=== PATIENT | female | born 1930 | race Caucasian/White ===

== ENCOUNTER 2019-01-25 11:32 | Inpatient (IN) | payer MEDICARE, OTHER ==
[~2019-01-25] VITALS: Ht 160 cm; Wt 71.9 kg
[~2019-01-25 11:32] MED LIST: ASPI81TA52 PO; ATEN50TA PO; ATOR40TA68 PO; BENHCT2012 PO; CLON-379 PO; ICOS1CAP PO; LOSA1TAB22 PO; MEMA10TA PO; OLME1TAB29 PO; REPA1TAB5 PO; SITA1TAB PO; SULF1TAB31 PO
[2019-01-25 11:37] VITALS: Ht 160 cm; Wt 71.9 kg
--- NOTE | 2019-01-25 12:43 | EN ---
Date/Time of Note Date/Time of Note DATE: 01/25/19 TIME: 12:43 ER Progress Note 88-year-old female with history of hypertension, diabetes, hyperlipidemia presents for chest pain. Medical screening exam initiated and lab/imaging tests ordered. Patient will be seen by another provider. SHAHEEN NIXON DO Jan 25, 2019 12:43
--- NOTE | 2019-01-25 15:47 | ERD ---
ER Documentation Chief Complaint Chief Complaint chest pain, shortness of breath, palpatitation HPI This is an 88-year-old woman referred here by her PMD for admission and inpatient management, patient had left-sided chest pain today beginning at rest and lasting for about 10 to 15 minutes. She also had shortness of breath and her daughter who is at the bedside states her blood sugars have been running very high despite recent new medications. The symptoms began shortly after using her new diabetic medications and her first dose of Bactrim for recently diagnosed urinary tract infection. Her daughter is worried that these new medications caused her symptoms and wants them changed. Patient has had no recent fevers or chills, no cough, no headache or blurry vision, no loss of consciousness. ROS All systems reviewed and are negative except as per history of present illness. Medications Home Meds Reported Medications Aspirin (Low Dose Aspirin) 81 Mg Tablet.dr, 81 MG PO DAILY, #30 TAB 01/25/19 Atorvastatin* (Atorvastatin*) 40 Mg Tablet, 40 MG PO QHS, #30 TAB 01/25/19 Memantine* (Namenda*) 10 Mg Tablet, 10 MG PO BID, #60 TAB 01/25/19 Sbcqhiydno-Ofkuljjuie-MYYR (Tribenzor) 20-5-12.5 Mg Tablet, 1 TAB PO DAILY, TAB 01/25/19 Icosapent Ethyl (VASCEPA) 1 Gm Capsule, 2 GM PO BID, CAP 01/25/19 Atenolol* (Atenolol*) 50 Mg Tablet, 50 MG PO BID, #60 TAB 01/25/19 Sulfamethoxazole/Trimethoprim* (Bactrim Ds* Tablet) 1 Each Tablet, 1 TAB PO BID, TAB STARTED 01-18-19 FOR 7 DAYS 01/25/19 Sitagliptin Phos/Metformin HCl (Janumet 50-500 mg Tablet) 1 Each Tablet, 1 EACH PO BID, TAB 01/25/19 Repaglinide* (Repaglinide*) 1 Mg Tablet, 1 MG PO AC MEALS, TAB 01/25/19 Discontinued Reported Medications Losartan-Hydrochlorothiazide (Losartan-HCTZ) 50-12.5 Mg Tab, 1 TAB PO DAILY, TAB 03/01/16 Clonidine Hcl* (Clonidine Hcl*) 0.1 Mg Tab, 0.1 MG PO Q8, TAB 9/4/16 Olmesartan-Hydrochlorothiazide (Benicar HCT) 20-12.5 Mg Tablet, 1 TAB PO DAILY, #30 TAB 03/01/16 Atorvastatin* (Atorvastatin*) 40 Mg Tablet, 40 MG PO QHS, #30 TAB 03/01/16 Atenolol* (Atenolol*) 50 Mg Tablet, 50 MG PO BID, TAB 06/02/14 Allergies Allergies: Coded Allergies: No Known Allergy (Unverified , 01/25/19) PMhx/Soc Dementia, obesity, hypertension, diabetes mellitus, dyslipidemia History of Surgery: Yes (REMOVAL OF LYPOMA.) Anesthesia Reaction: No Hx Neurological Disorder: No Hx Respiratory Disorders: No Hx Cardiac Disorders: Yes (HTN) Hx Psychiatric Problems: No Hx Miscellaneous Medical Probl: No Hx Alcohol Use: No Hx Substance Use: No Hx Tobacco Use: No Smoking Status: Never smoker FmHx Family History: diabetes Physical Exam Vitals Vital Signs Date Temp Pulse Resp B/P (MAP) Pulse Ox O2 O2 Flow FiO2 Time Delivery Rate 01/25/19 98.1 80 16 133/77 98 Room Air 16:51 (95) 01/25/19 98.1 89 16 147/74 98 Room Air 15:42 (98) 01/25/19 98.1 111 26 173/86 95 11:37 (115) Physical Exam GENERAL: Well-developed, well-nourished, well-hydrated, in no apparent distress, looks nontoxic in appearance CARDIAC: Regular rate and rhythm, no murmurs rubs or gallops LUNGS: Crackles at the bases, no wheezing or stridor ABDOMEN: Soft nontender, no guarding, no rigidity, no rebound, no psoas sign no obturator sign. Normoactive bowel sounds SKIN: Warm and dry to touch, no abrasions, contusions, or hematomas, no lacerations, no ecchymosis, no target lesions, and without ulcers EXTREMITIES: No clubbing cyanosis or edema, calves are bilaterally symmetrical, no Homans sign, no popliteal cord sign. Distal pulses equal and bilateral PSYCH: Normal affect without agitation or irritability Result Diagram: 01/25/19 1307 01/25/19 1307 Results 24 hrs Laboratory Tests Test 01/25/19 13:07 White Blood Count 6.6 10^3/ul Red Blood Count 4.96 10^6/ul Hemoglobin 14.1 g/dl Hematocrit 43.0 % Mean Corpuscular Volume 86.7 fl Mean Corpuscular Hemoglobin 28.4 pg Mean Corpuscular Hemoglobin Concent 32.8 g/dl Red Cell Distribution Width 13.6 % Platelet Count 263 10^3/UL Mean Platelet Volume 9.3 fl Immature Granulocytes % 0.300 % Neutrophils % 64.2 % Lymphocytes % 24.7 % Monocytes % 8.8 % Eosinophils % 1.2 % Basophils % 0.8 % Nucleated Red Blood Cells % 0.0 /100WBC Immature Granulocytes # 0.020 10^3/ul Neutrophils # 4.2 10^3/ul Lymphocytes # 1.6 10^3/ul Monocytes # 0.6 10^3/ul Eosinophils # 0.1 10^3/ul Basophils # 0.1 10^3/ul Nucleated Red Blood Cells # 0.0 10^3/ul Sodium Level 142 mmol/L Potassium Level 4.4 mmol/L Chloride Level 106 mmol/L Carbon Dioxide Level 26 mmol/L Anion Gap 10 Blood Urea Nitrogen 21 mg/dl Creatinine 0.85 mg/dl Est Glomerular Filtrat Rate mL/min mL/min Glucose Level 205 mg/dl Calcium Level 9.8 mg/dl Total Bilirubin 0.5 mg/dl Direct Bilirubin 0.00 mg/dl Indirect Bilirubin 0.5 mg/dl Aspartate Amino Transf (AST/SGOT) 22 IU/L Alanine Aminotransferase (ALT/SGPT) 35 IU/L Alkaline Phosphatase 125 IU/L Troponin I < 0.012 ng/ml B-Type Natriuretic Peptide 1680 PG/ML Total Protein 7.5 g/dl Albumin 4.5 g/dl Globulin 3.00 g/dl Albumin/Globulin Ratio 1.50 Current Medications Medications Dose Sig/Sai Start Time Status Last (Trade) Ordered Route PRN Stop Time Admin Dose Reason Admin Furosemide 20 mg ONCE ONCE 01/25/19 DC 01/25/19 (Lasix) PO 16:30 16:27 01/25/19 16:31 Aspirin 162 mg ONCE ONCE 01/25/19 DC 01/25/19 (Aspirin) PO 16:30 16:27 01/25/19 16:31 Procedures/MDM IV line was established patient was placed on telemetry monitor rhythm strip revealed a narrow complex tachycardia at 110 bpm with upright P and T waves. Patient was afebrile EKG performed, read by me revealed a sinus tachycardia at 110 bpm, normal axis, narrow QRS complex, no concerning ST elevations or depressions noted EKG #2 was performed about 3 hours after the first 1 revealing a normal sinus rhythm 85 bpm, normal axis, narrow QRS complex, no concerning ST elevations or depressions noted. 1 view chest x-ray performed, read by me revealed atelectatic changes bilaterally, no acute infiltrates, no pneumothorax. BNP severely elevated I treated her here with furosemide 20 mg p.o. x1 and aspirin 162 mg p.o. for cardioprotective measures given her recent chest pain. CBC and electrolytes were normal, liver function test normal, troponin negative. I spoke to Dr. [place] who recommended admission for continued medical management and medication optimization. Patient admitted to telemetry. Departure Diagnosis: Primary Impression: Chest pain Chest pain type: unspecified Qualified Codes: R07.9 - Chest pain, unspecified Additional Impressions: CHF (congestive heart failure) Heart failure type: combined systolic and diastolic Heart failure chronicity: acute Qualified Codes: I50.41 - Acute combined systolic (congestive) and diastolic (congestive) heart failure Hyperglycemia Condition: CAM Bloom MD Jan 25, 2019 15:47
[2019-01-25] MEDS ORDERED: ASPIRIN 81 MG TAB PO ONE (16:30)
[2019-01-25] MEDS ORDERED: FUROSEMIDE 20 MG TAB PO ONE (16:30)
[2019-01-25 23:14] VITALS: BP 121/58; PULSE 78; RESP 19
[2019-01-26] VITALS (7 sets, daily range): BP systolic 95–133; BP diastolic 57–72; PULSE 60–86; RESP 18–20
[2019-01-26] MEDS ORDERED: ONDANSETRON 4 MG INJ IV PRN (00:30)
[2019-01-26] MEDS: PANTOPRAZOLE (EC) 40 MG TAB PO SCH (06:00)
[2019-01-26] MEDS: ACCU-CHEK XX SCH ×4 (08:30→21:00)
[2019-01-26] MEDS: metFORMIN 500 MG TAB PO SCH ×2 (08:46→17:22)
[2019-01-26] MEDS: REPAGLINIDE 1 MG TAB PO SCH ×3 (08:46→17:22)
[2019-01-26] MEDS: CIPROFLOXACIN 400MG/D5W 200 ML IVPB SCH ×2 (08:55→17:22)
[2019-01-26] MEDS ORDERED: ENALAPRIL 2.5 MG TAB PO SCH (09:00)
[2019-01-26] MEDS ORDERED: FUROSEMIDE 20 MG TAB PO SCH (09:00)
[2019-01-26] MEDS: INSULIN ASPART [NOVOLOG] 3 ML PEN SC SCH ×4 (09:19→21:00)
--- NOTE | 2019-01-26 09:41 | CONS ---
Assessment/Plan Assessment/Plan Hospital Course (Demo Recall) Chest pain/palpitations/SVT: With tele showing runs of SVT which appear to be atrial tachycardia, this may have been what she felt. EKGs and initial trop (which was 12+ hours after the incident) both normal so unlikely ACS. She is also relatively active and asymptomatic. For now will continue her atenolol, check an echo and check one more trop. If all normal, will defer stress testing unless she had recurrent symptoms HTN DM UTI Mild dementia -one more troponin -check echo -continue atenolol 50mg BID -monitor on tele for recurrence of SVT -ASA, lipitor Consultation Date/Type/Reason Admit Date/Time Jan 25, 2019 at 16:18 Date of Consultation: Jan 26, 2019 Type of Consult Cardiology Reason for Consultation Chest pain Requesting Provider: SHAWNEE CALDERON MD Date/Time of Note DATE: 01/26/19 TIME: 09:30 Hx of Present Illness 88 yo F with a h/o DM, HTN, HL, mild dementia, who presented at the request of Dr. Calderon after complaining of chest pain. The pt's daughter is at bedside (her is my pt as well). The daughter notes that yesterday her mother complained of chest pressure which had occurred the night before. Apparently she was prescribed new DM meds as well as bactrim for a UTI. She had taken all three in the evening. She has poor memory and is not able to describe details but she notes that she felt palpitations and chest pressure for a brief period which then resolved. She does not think it was related to the actual pills getting stuck in her esophagus. No recurrence all day yesterday or today. She denies cardiac history and in general is able to ambulate 2-3 blocks without chest pain or dyspnea. No orthopnea, PND, edema. In the ED she had normal EKGs, one normal troponin and was given PO lasix for elevated BNP. Overnight she had two short runs of SVT, likely atrial tachycardia. She was asleep during the longer one. per hPI Past Medical History per hPI Home Meds Reported Medications Aspirin (Low Dose Aspirin) 81 Mg Tablet., 81 MG PO DAILY, #30 TAB 01/25/19 Atorvastatin* (Atorvastatin*) 40 Mg Tablet, 40 MG PO QHS, #30 TAB 01/25/19 Memantine* (Namenda*) 10 Mg Tablet, 10 MG PO BID, #60 TAB 01/25/19 Wqrcvinybb-Atwchcyxxw-FOBE (Tribenzor) 20-5-12.5 Mg Tablet, 1 TAB PO DAILY, TAB 01/25/19 Icosapent Ethyl (VASCEPA) 1 Gm Capsule, 2 GM PO BID, CAP 01/25/19 Atenolol* (Atenolol*) 50 Mg Tablet, 50 MG PO BID, #60 TAB 01/25/19 Sulfamethoxazole/Trimethoprim* (Bactrim Ds* Tablet) 1 Each Tablet, 1 TAB PO BID, TAB STARTED 01-18-19 FOR 7 DAYS 01/25/19 Sitagliptin Phos/Metformin HCl (Janumet 50-500 mg Tablet) 1 Each Tablet, 1 EACH PO BID, TAB 01/25/19 Repaglinide* (Repaglinide*) 1 Mg Tablet, 1 MG PO AC MEALS, TAB 01/25/19 Discontinued Reported Medications Losartan-Hydrochlorothiazide (Losartan-HCTZ) 50-12.5 Mg Tab, 1 TAB PO DAILY, TAB 03/01/16 Clonidine Hcl* (Clonidine Hcl*) 0.1 Mg Tab, 0.1 MG PO Q8, TAB 03/01/16 Olmesartan-Hydrochlorothiazide (Benicar HCT) 20-12.5 Mg Tablet, 1 TAB PO DAILY, #30 TAB 03/01/16 Atorvastatin* (Atorvastatin*) 40 Mg Tablet, 40 MG PO QHS, #30 TAB 03/01/16 Atenolol* (Atenolol*) 50 Mg Tablet, 50 MG PO BID, TAB 06/02/14 Medications Current Medications Ciprofloxacin/ Dextrose 200 ml @ 200 mls/hr BID WITH MEALS IVPB ; Start 01/26/19 at 08:00 Metformin HCl (Glucophage) 500 mg BID WITH MEALS PO ; Start 01/26/19 at 08:00 Insulin Aspart (Novolog Insulin Pen) NOVOLOG *MODERATE* ALGORITHM WITH MEALS BEDTIME SC ; Start 01/26/19 at 08:00 Pantoprazole (Protonix Tab) 40 mg DAILY@06 PO ; Start 01/26/19 at 06:00 Ondansetron HCl (Zofran Inj) 4 mg Q4H PRN IV NAUSEA AND/OR VOMITING; Start 01/26/19 at 00:30 Furosemide (Lasix) 20 mg Q12 PO ; Start 01/26/19 at 09:00 Aspirin (Aspirin) 81 mg DAILY PO ; Start 01/26/19 at 09:00 Atenolol (Tenormin) 50 mg BID PO ; Start 01/26/19 at 09:00 Atorvastatin Calcium (Lipitor) 40 mg QHS PO ; Start 01/26/19 at 21:00 Repaglinide (Prandin) 1 mg AC MEALS PO ; Start 01/26/19 at 07:00 Diagnostic Test (Pha) (Accu-Chek) 1 ea AC MEALS AND BEDTIME XX Last administered on 01/26/19at 08:30; Admin Dose 1 EA; Start 01/26/19 at 07:00 Enalapril Maleate (Vasotec) 2.5 mg DAILY PO ; Start 01/26/19 at 09:00 Allergies: Coded Allergies: No Known Allergy (Unverified , 01/25/19) Social History Smoking Status: Never smoker Exam/Review of Systems Vital Signs Vitals Vital Signs Date Temp Pulse Resp B/P (MAP) Pulse Ox O2 O2 Flow FiO2 Time Delivery Rate 01/26/19 97.6 86 18 133/70 93 07:23 (91) 01/26/19 Nasal 04:03 Cannula 01/26/19 2.0 00:00 Exam Constitutional: alert, oriented Psych: no complaints, nl mood/affect Head: normocephalic, atraumatic Neck: No jvd Respiratory: clear to auscultation; No crackles/rales Cardiovascular: regular rate and rhythm; No edema Gastrointestinal: soft, non-tender; No distended Neurological: nl mental status, nl speech Labs Result Diagram: 01/25/19 1307 01/25/19 1307 Results 24hrs Laboratory Tests Test 01/25/19 13:02 01/25/19 13:07 01/25/19 18:49 01/25/19 23:34 Magnesium Level 2.1 White Blood Count 6.6 Red Blood Count 4.96 Hemoglobin 14.1 Hematocrit 43.0 Mean Corpuscular 86.7 Volume Mean Corpuscular 28.4 L Hemoglobin Mean Corpuscular 32.8 Hemoglobin Concent Red Cell 13.6 Distribution Width Platelet Count 263 Mean Platelet Volume 9.3 # Immature 0.300 Granulocytes % Neutrophils % 64.2 Lymphocytes % 24.7 Monocytes % 8.8 Eosinophils % 1.2 Basophils % 0.8 Nucleated Red Blood 0.0 Cells % Immature 0.020 Granulocytes # Neutrophils # 4.2 Lymphocytes # 1.6 Monocytes # 0.6 Eosinophils # 0.1 Basophils # 0.1 Nucleated Red Blood 0.0 Cells # Sodium Level 142 Potassium Level 4.4 Chloride Level 106 Carbon Dioxide Level 26 Anion Gap 10 Blood Urea Nitrogen 21 H Creatinine 0.85 Est Glomerular Filtrat Rate mL/min Glucose Level 205 Calcium Level 9.8 Total Bilirubin 0.5 Direct Bilirubin 0.00 Indirect Bilirubin 0.5 Aspartate Amino 22 Transf (AST/SGOT) Alanine 35 Aminotransferase (AL T/SGPT) Alkaline Phosphatase 125 H Troponin I < 0.012 B-Type Natriuretic 1680 H Peptide Total Protein 7.5 Albumin 4.5 Globulin 3.00 Albumin/Globulin 1.50 Ratio Urine Color YELLOW Urine Clarity CLEAR Urine pH 5.0 Urine Specific 1.015 [place] Urine Ketones NEGATIVE Urine Nitrite NEGATIVE Urine Bilirubin NEGATIVE Urine Urobilinogen NEGATIVE Urine Leukocyte 2+ H Esterase Urine Microscopic 1 RBC Urine Microscopic 5 WBC Urine Bacteria FEW A Urine Hemoglobin NEGATIVE Urine Glucose NEGATIVE Urine Total Protein NEGATIVE Bedside Glucose 136 Test 01/26/19 08:31 Bedside Glucose 176 Medications Medications Current Medications Ciprofloxacin/ Dextrose 200 ml @ 200 mls/hr BID WITH MEALS IVPB ; Start 01/26/19 at 08:00 Metformin HCl (Glucophage) 500 mg BID WITH MEALS PO ; Start 01/26/19 at 08:00 Insulin Aspart (Novolog Insulin Pen) NOVOLOG *MODERATE* ALGORITHM WITH MEALS BEDTIME SC ; Start 01/26/19 at 08:00 Pantoprazole (Protonix Tab) 40 mg DAILY@06 PO ; Start 01/26/19 at 06:00 Ondansetron HCl (Zofran Inj) 4 mg Q4H PRN IV NAUSEA AND/OR VOMITING; Start 01/26/19 at 00:30 Furosemide (Lasix) 20 mg Q12 PO ; Start 01/26/19 at 09:00 Aspirin (Aspirin) 81 mg DAILY PO ; Start 01/26/19 at 09:00 Atenolol (Tenormin) 50 mg BID PO ; Start 01/26/19 at 09:00 Atorvastatin Calcium (Lipitor) 40 mg QHS PO ; Start 01/26/19 at 21:00 Repaglinide (Prandin) 1 mg AC MEALS PO ; Start 01/26/19 at 07:00 Diagnostic Test (Pha) (Accu-Chek) 1 ea AC MEALS AND BEDTIME XX Last administered on 01/26/19at 08:30; Admin Dose 1 EA; Start 01/26/19 at 07:00 Enalapril Maleate (Vasotec) 2.5 mg DAILY PO ; Start 01/26/19 at 09:00 JAME DURON Jan 26, 2019 09:40
--- NOTE | 2019-01-26 09:55 | HP ---
Date/Time of Note Date/Time of Note DATE: 01/26/19 TIME: 09:34 Assessment/Plan VTE Prophylaxis SCD applied (from Nsg): No SCD contraindicated: other (onn) Pharmacological prophylaxis: LMWH Lines/Catheters IV Catheter Type (from Nrsg): Saline Lock Urinary Cath still in place: No Reason Cath still needed: urinary retention Assessment/Plan Assessment/Plan 1. Chest pain syndrome, rule acute coronary syndrome. 2. Hypertensive urgency, currently has been hypotensive on medications. 3. New onset DM with unknown fasting and PPG levels. Unknown previous treatment and effects. 4. 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 5.Status post recent self-push back over the prolapsed perineal organs. 6. Recurrent urinary tract infections. 7. Osteoarthritis. 8. Osteoporosis. 9. Hypertension. 10. Dyslipidemia. 11. Dizziness 12. Anemia of chronic disease. 13. Anxiety and fearfulness. 14. Nonobstructive carotid stenosis 15.AD- progressively worse 16.Severe hearing impairment 17.Palpitations- cardiology consult 18.Paroxysmal atrial fibrillation with rapid ventricular rate, now sinus rhythm. Result Diagram: 01/25/19 1307 01/25/19 1307 Results 24hrs Laboratory Tests Test 01/25/19 13:02 01/25/19 13:07 01/25/19 18:49 01/25/19 23:34 Magnesium Level 2.1 White Blood Count 6.6 Red Blood Count 4.96 Hemoglobin 14.1 Hematocrit 43.0 Mean Corpuscular 86.7 Volume Mean Corpuscular 28.4 L Hemoglobin Mean Corpuscular 32.8 Hemoglobin Concent Red Cell 13.6 Distribution Width Platelet Count 263 Mean Platelet Volume 9.3 # Immature 0.300 Granulocytes % Neutrophils % 64.2 Lymphocytes % 24.7 Monocytes % 8.8 Eosinophils % 1.2 Basophils % 0.8 Nucleated Red Blood 0.0 Cells % Immature 0.020 Granulocytes # Neutrophils # 4.2 Lymphocytes # 1.6 Monocytes # 0.6 Eosinophils # 0.1 Basophils # 0.1 Nucleated Red Blood 0.0 Cells # Sodium Level 142 Potassium Level 4.4 Chloride Level 106 Carbon Dioxide Level 26 Anion Gap 10 Blood Urea Nitrogen 21 H Creatinine 0.85 Est Glomerular Filtrat Rate mL/min Glucose Level 205 Calcium Level 9.8 Total Bilirubin 0.5 Direct Bilirubin 0.00 Indirect Bilirubin 0.5 Aspartate Amino 22 Transf (AST/SGOT) Alanine 35 Aminotransferase (AL T/SGPT) Alkaline Phosphatase 125 H Troponin I < 0.012 B-Type Natriuretic 1680 H Peptide Total Protein 7.5 Albumin 4.5 Globulin 3.00 Albumin/Globulin 1.50 Ratio Urine Color YELLOW Urine Clarity CLEAR Urine pH 5.0 Urine Specific 1.015 Cord Urine Ketones NEGATIVE Urine Nitrite NEGATIVE Urine Bilirubin NEGATIVE Urine Urobilinogen NEGATIVE Urine Leukocyte 2+ H Esterase Urine Microscopic 1 RBC Urine Microscopic 5 WBC Urine Bacteria FEW A Urine Hemoglobin NEGATIVE Urine Glucose NEGATIVE Urine Total Protein NEGATIVE Bedside Glucose 136 Test 01/26/19 08:31 Bedside Glucose 176 HPI/ROS Admit Date/Time Admit Date/Time Jan 25, 2019 at 16:18 Hx of Present Illness Uncontrolled blood pressure. Irregular heartbeats. Uncontrolled blood sugar. Inability to hold the urine. Recurrent UTIs. Progressive worsening of memory. The patient was seen by me in the office about a week ago after almost 1 year off and OCD episode. It become clear that the patient blood sugar level was at the range of 4-500 according to the daughter's report and blood pressure was going up systolic to the level of 1 70-1 80. Attempt was made as an outpatient to initiated treatment of these both conditions realize it is impossible partially because of the demands of her daughters think speech eating his right for a mom particularly ordering one medication stopping another medication etc. along with new onset urinary tract infection. I discussed with the daughter that 1 of 2-day hospitalization is warranted to control blood sugar blood pressure titrate medications and is 88 years old female whose memory is declining and it to make it without direct control 24 to 48 hours will be extremely difficult having very high numbers of above-mentioned parameters. Yesterday they agreed. Last night patient had a episode of atrial tachycardia now it is a sinus rate blood pressure and blood sugars are better controlled already. We will continue work-up for another 24 hours and then discharge. ROS Constitutional: improved, chills, disoriented, fatigue, nausea, poor po, weight change; No no complaints, No diaphoresis, No febrile, No other Eyes: No no complaints, No pain, No discharge, No redness, No visual change, No other ENT: sore throat (Severe hearing impairment for almost total deafness.); No no complaints, No bleeding, No pain, No congestion, No discharge, No dysphagia, No other Respiratory: cough, pleuritic pain, shortness of breath; No no complaints, No pain, No sputum, No wheezing, No other Cardiovascular: chest pain (The patient is having a substernal pressure sensation accompanied with her shortness of breath and nonradiating but she was perseverating on having the tachycardia to.), lightheadedness, orthopenea, palpitations; No no complaints, No edema, No paroxysmal nocturnal dyspnea, No other Gastrointestinal: constipation, flatus, nausea; No no complaints, No pain, No blood, No decreased appetite, No diarrhea, No passing stool, No vomiting, No other Genitourinary: dysuria, other (Unable to hold the urine); No no complaints, No bleeding, No discharge, No flank pain, No hematuria Musculoskeletal: back pain, bone/joint pain; No no complaints, No neck pain, No restricted range of motion, No swelling, No other Skin: No no complaints, No bruising, No erythema, No laceration, No pruritis, No rash, No skin lesions, No other Neurologic: confusion, dizziness (On and off), headache; No no complaints, No focal-weakness, No syncope, No seizure, No other Endocrine: polydypsia; No no complaints, No polyuria, No dry skin, No temp intolerance, No weight change, No other Lymphatic: No no complaints, No adenopathy, No tender nodes, No lymphadema, No other Psychological: anxiety, confusion, depression, other (She is forgetful and it apparent that getting worse.); No no complaints, No nl mood/affect, No suicidal Immunologic: No no complaints, No immunodeficiency, No pruritis, No rhinitis, No urticaria, No other PMH/Family/Social Past Medical History Medical History: angina, congestive heart failure, coronary artery disease, diabetes, gallstones, high cholesterol, hypertension, irritable bowel syndrome, urinary tract infection Medications Current Medications Ciprofloxacin/ Dextrose 200 ml @ 200 mls/hr BID WITH MEALS IVPB Last administered on 01/26/19at 08:55; Admin Dose 200 MLS/HR; Start 01/26/19 at 08:00 Metformin HCl (Glucophage) 500 mg BID WITH MEALS PO Last administered on 01/26/19at 08:46; Admin Dose 500 MG; Start 01/26/19 at 08:00 Insulin Aspart (Novolog Insulin Pen) NOVOLOG *MODERATE* ALGORITHM WITH MEALS BEDTIME SC Last administered on 01/26/19at 09:19; Admin Dose 2 UNIT; Start 01/26/19 at 08:00 Pantoprazole (Protonix Tab) 40 mg DAILY@06 PO ; Start 01/26/19 at 06:00 Ondansetron HCl (Zofran Inj) 4 mg Q4H PRN IV NAUSEA AND/OR VOMITING; Start 01/26/19 at 00:30 Aspirin (Aspirin) 81 mg DAILY PO ; Start 01/26/19 at 09:00 Atenolol (Tenormin) 50 mg BID PO ; Start 01/26/19 at 09:00 Atorvastatin Calcium (Lipitor) 40 mg QHS PO ; Start 01/26/19 at 21:00 Repaglinide (Prandin) 1 mg AC MEALS PO Last administered on 01/26/19at 08:46; Admin Dose 1 MG; Start 01/26/19 at 07:00 Diagnostic Test (Pha) (Accu-Chek) 1 ea AC MEALS AND BEDTIME XX Last administered on 01/26/19at 08:30; Admin Dose 1 EA; Start 01/26/19 at 07:00 Enalapril Maleate (Vasotec) 2.5 mg DAILY PO ; Start 01/26/19 at 09:00 Coded Allergies: No Known Allergy (Unverified , 01/25/19) Family History Significant Family History: no pertinent family hx Social History Alcohol Use: none Smoking Status: Never smoker Drug Use: none Exam/Review of Systems Vital Signs Vitals Vital Signs Date Temp Pulse Resp B/P (MAP) Pulse Ox O2 O2 Flow FiO2 Time Delivery Rate 01/26/19 97.6 86 18 133/70 93 07:23 (91) 01/26/19 Nasal 04:03 Cannula 01/26/19 2.0 00:00 Exam Constitutional: alert, oriented (not in time.), well developed, distress; No non-verbal, No frail, No other Psych: anxiety, confusion; No no complaints, No nl mood/affect, No depression, No suicidal, No other Head: normocephalic, atraumatic; No lacerations, No hematomas, No other Eyes: EOMI, nl lids, PERRL; No nl conjunctiva, No nl sclera, No icteric, No fundi, disc, No other ENMT: tympanic membranes (sclerotic.); No nl external ears & nose, No nl lips & teeth, No nl nasal mucosa & septum, No mucosa pink and moist, No intubated, No other Neck: No supple, No non-tender, No jvd, No bruits, No masses, No thyromegaly, No nuchal rigidity, No other Respiratory: clear to auscultation, diminished breath sounds; No normal air movement, No congested cough, No crackles/rales, No intercostal retraction, No labored breathing, No respirations, No tactile fremitus, No wheezing, No other Cardiovascular: regular rate and rhythm, nl pulses, bruits, edema, jugular venous distention (JVD), systolic murmur; No diastolic murmur, No gallop, No irregular rhythm, No murmurs/extra sounds, No rub, No S3, No S4, No other Gastrointestinal: soft, nl liver, spleen, bowel sounds, distended; No non-tender, No ascites, No firm, No hepatomegaly, No mass, No rebound or guarding, No splenomegaly, No surgical scars, No tender, No other Genitourinary - Female: other (prolase..); No nl adnexae, No nl external genitalia, No CMT, No CVA tenderness, No uterus Musculoskeletal: joint tenderness, muscle tone, muscle weakness; No nl extremities to inspection, No nl gait and stance, No range of motion, No spine non-tender, No swelling, No other Extremities: normal pulses, pitting pedal edema; No calf tenderness, No cyanosis, No clubbing, No edema, No palpable cord, No tenderness, No other Neurological: RN ELIGIBILITY II-XII intact, nl speech, numbness; No nl mental status, No nl strength, No confused, No DTR's symmetric, No focal weakness, No lethargic, No reflexes, No unresponsive, No other Skin: nl turgor (decreased.), ecchymosis; No rash or lesions, No diaphoresis, No laceration, No puncture, No other Lymph: nl lymph nodes; No enlarged, No nontender, No other SHAWNEE CALDERON MD Jan 26, 2019 09:44
[2019-01-26] MEDS: ASPIRIN 81 MG TAB PO SCH (12:09)
[2019-01-26] MEDS: ENALAPRIL 5 MG TAB PO SCH (12:09)
[2019-01-26] MEDS: ATENOLOL 50 MG TAB PO SCH ×2 (12:10→21:22)
[2019-01-26] MEDS ORDERED: ATORVASTATIN 40 MG TAB PO SCH (21:00)
--- NOTE | 2019-01-26 23:26 | DS ---
Date/Time of Note Date/Time of Note DATE: 01/26/19 TIME: 23:23 Discharge Summary Admission/Discharge Info Admit Date/Time Jan 25, 2019 at 16:18 Discharge Date/Time 01/27/2019 at 11:00am Patient Condition: Guarded Hx of Present Illness Uncontrolled blood pressure. Irregular heartbeats. Uncontrolled blood sugar. Inability to hold the urine. Recurrent UTIs. Progressive worsening of memory. The patient was seen by me in the office about a week ago after almost 1 year off and OCD episode. It become clear that the patient blood sugar level was at the range of 4-500 according to the daughter's report and blood pressure was going up systolic to the level of 1 70-1 80. Attempt was made as an outpatient to initiated treatment of these both conditions realize it is impossible partially because of the demands of her daughters think speech eating his right for a mom particularly ordering one medication stopping another medication etc. along with new onset urinary tract infection. I discussed with the daughter that 1 of 2-day hospitalization is warranted to control blood sugar blood pressure titrate medications and is 88 years old female whose memory is declining and it to make it without direct control 24 to 48 hours will be extremely difficult having very high numbers of above-mentioned parameters. Yesterday they agreed. Last night patient had a episode of atrial tachycardia now it is a sinus rate blood pressure and blood sugars are better controlled already. We will continue work-up for another 24 hours and then discharge. Hospital Course Improved bs,bp and overall condition. Continues to be forgetful and dizzy. Home Meds Reported Medications Aspirin (Low Dose Aspirin) 81 Mg Tablet.dr, 81 MG PO DAILY, #30 TAB 01/25/19 Atorvastatin* (Atorvastatin*) 40 Mg Tablet, 40 MG PO QHS, #30 TAB 01/25/19 Memantine* (Namenda*) 10 Mg Tablet, 10 MG PO BID, #60 TAB 01/25/19 Oeyqejpmjf-Epruldnfhd-DTVA (Tribenzor) 20-5-12.5 Mg Tablet, 1 TAB PO DAILY, TAB 01/25/19 Icosapent Ethyl (VASCEPA) 1 Gm Capsule, 2 GM PO BID, CAP 01/25/19 Atenolol* (Atenolol*) 50 Mg Tablet, 50 MG PO BID, #60 TAB 01/25/19 Sulfamethoxazole/Trimethoprim* (Bactrim Ds* Tablet) 1 Each Tablet, 1 TAB PO BID, TAB STARTED 01-18-19 FOR 7 DAYS 01/25/19 Sitagliptin Phos/Metformin HCl (Janumet 50-500 mg Tablet) 1 Each Tablet, 1 EACH PO BID, TAB 01/25/19 Repaglinide* (Repaglinide*) 1 Mg Tablet, 1 MG PO AC MEALS, TAB 01/25/19 Discontinued Reported Medications Losartan-Hydrochlorothiazide (Losartan-HCTZ) 50-12.5 Mg Tab, 1 TAB PO DAILY, TAB 03/01/16 Clonidine Hcl* (Clonidine Hcl*) 0.1 Mg Tab, 0.1 MG PO Q8, TAB 03/01/16 Olmesartan-Hydrochlorothiazide (Benicar HCT) 20-12.5 Mg Tablet, 1 TAB PO DAILY, #30 TAB 03/01/16 Atorvastatin* (Atorvastatin*) 40 Mg Tablet, 40 MG PO QHS, #30 TAB 03/01/16 Atenolol* (Atenolol*) 50 Mg Tablet, 50 MG PO BID, TAB 06/02/14 Follow-up Plan in [address] Calderon. Primary Care Provider Gregorio Calderon MD Time spent on discharge: > 30 minutes Pending Labs Laboratory Tests Test 01/25/19 23:34 01/26/19 08:31 01/26/19 09:49 01/26/19 12:07 Bedside 136 176 142 Glucose mg/dL (70-220) mg/dL (70-220) mg/dL (70-220) White Blood 6.1 Count 10^3/ul (4.8-1 0.8) Red Blood 4.86 Count 10^6/ul (4.20- 5.40) Hemoglobin 13.8 g/dl (12.0-16. 0) Hematocrit 43.0 % (37.0-47.0) Mean 88.5 Corpuscular fl (82.0-101.0 Volume ) Mean 28.4 Corpuscular pg (29.0-33.0) Hemoglobin Mean 32.1 Corpuscular g/dl (32.0-37. Hemoglobin Conc 0) ent Red Cell 13.6 Distribution % (11.5-14.5) Width Platelet Count 239 10^3/UL (140-4 15) Mean Platelet 9.6 Volume fl (7.4-10.4) Immature 0.300 Granulocytes % % (0.001-0.429 ) Neutrophils % 68.4 % (39.0-77.0) Lymphocytes % 21.9 % (15.0-51.0) Monocytes % 7.6 % (0.0-11.0) Eosinophils % 1.3 % (0.0-7.0) Basophils % 0.5 % (0.0-2.0) Nucleated Red 0.0 Blood Cells % /100WBC (0.0-0 .0) Immature 0.020 Granulocytes # 10^3/ul (0.0-0 .031) Neutrophils # 4.1 10^3/ul (1.6-7 .5) Lymphocytes # 1.3 10^3/ul (0.8-2 .9) Monocytes # 0.5 10^3/ul (0.3-0 .9) Eosinophils # 0.1 10^3/ul (0.0-0 .5) Basophils # 0.0 10^3/ul (0.0-0 .1) Nucleated Red 0.0 Blood Cells # 10^3/ul (0.0-0 .0) Sodium Level 140 mmol/L (135-14 4) Potassium 4.1 Level mmol/L (3.5-5. 1) Chloride Level 102 mmol/L (97-110 ) Carbon Dioxide 29 Level mmol/L (21-31) Anion Gap 9 (5-13) Blood Urea 22 Nitrogen mg/dl (7-20) Creatinine 0.85 mg/dl (0.44-1. 00) Est Glomerular mL/min (>60) Filtrat Rate mL/min Glucose Level 284 mg/dl (70-220) Calcium Level 9.9 mg/dl (8.4-10. 2) Total 0.7 Bilirubin mg/dl (0.2-1.3 ) Direct 0.00 Bilirubin mg/dl (0.00-0. 20) Indirect 0.7 Bilirubin mg/dl (0-1.1) Aspartate Amino 23 Transf (AST/SGO IU/L (15-46) T) Alanine 29 Aminotransferas IU/L (13-69) e (ALT/SGPT) Alkaline 116 Phosphatase IU/L (42-121) Troponin I < 0.012 ng/ml (0.000-0 .120) Total Protein 6.9 g/dl (6.1-8.1) Albumin 4.4 g/dl (3.3-4.9) Globulin 2.50 g/dl (1.3-3.2) Albumin/Globuli 1.76 n Ratio Test 01/26/19 21:21 Bedside 177 Glucose mg/dL (70-220) GREGORIO CALDERON MD Jan 26, 2019 23:26
[2019-01-27 03:27] VITALS: BP 128/65; PULSE 65; RESP 19
[2019-01-27] MEDS: PANTOPRAZOLE (EC) 40 MG TAB PO SCH (06:04)
[2019-01-27] MEDS: ACCU-CHEK XX SCH ×2 (07:00→11:54)
[2019-01-27 07:45] VITALS: BP 115/58; PULSE 58; RESP 20
[2019-01-27] MEDS: metFORMIN 500 MG TAB PO SCH (08:00)
[2019-01-27] MEDS: REPAGLINIDE 1 MG TAB PO SCH ×2 (08:01→11:55)
[2019-01-27] MEDS: CIPROFLOXACIN 400MG/D5W 200 ML IVPB SCH (08:01)
[2019-01-27] MEDS: INSULIN ASPART [NOVOLOG] 3 ML PEN SC SCH ×2 (08:16→12:02)
[2019-01-27] MEDS: ASPIRIN 81 MG TAB PO SCH (08:19)
[2019-01-27] MEDS: ENALAPRIL 5 MG TAB PO SCH (08:20)
[2019-01-27] MEDS: ATENOLOL 50 MG TAB PO SCH (08:21)
--- NOTE | 2019-01-27 08:52 | PDOCDIS ---
Discharge Instructions DIAGNOSIS Discharge Diagnosis 1. Chest pain syndrome, rule acute coronary syndrome. 2. Hypertensive urgency, currently has been hypotensive on medications. 3. New onset DM with unknown fasting and PPG levels. Unknown previous treatment and effects. 4. 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 5.Status post recent self-push back over the prolapsed perineal organs. 6. Recurrent urinary tract infections. 7. Osteoarthritis. 8. Osteoporosis. 9. Hypertension. 10. Dyslipidemia. 11. Dizziness 12. Anemia of chronic disease. 13. Anxiety and fearfulness. 14. Nonobstructive carotid stenosis 15.AD- progressively worse 16.Severe hearing impairment 17.Palpitations- cardiology consult 18.Paroxysmal atrial fibrillation with rapid ventricular rate, now sinus rhythm. CONDITION [id number] Patient Condition: [id number] Guarded HOME CARE INSTRUCTIONS: [id number] Diet Instructions: [id number] Bathing Restrictions: [id number] Tub Bath FOLLOW UP/APPOINTMENTS Follow-up Plan in [address] Calderon. REFERRALS Other Referrals To Dr. Peters in one week. SCHOOL/WORK RELEASE May return to School/Work with: none. SHAWNEE CALDERON MD Jan 27, 2019 08:52
--- NOTE | 2019-01-27 08:56 | RADRPT ---
Echocardiogram Report Patient Name: CRYSTAL FLYNNPatient ID: [id number] : [id number] (88y 7m)Study Date: 01/26/2019 11:04:51 AM Gender: FAccession #: [id number] Tech: Carl Fountain [facility] Location: [facility] Ref.Physician: JAME RAMOS Height(Cm): BSA: Weight(Kg): Quality: AdequateOrder Physician: JAME RAMOS Account #: Procedures: Echocardiographic Report: Transthoracic echocardiogram with complete 2D, M-Mode, and doppler examination. Indications: Congestive Heart Failure. Measurements: 2D/M Mode Doppler Measurement Value Normal Range Measurement Value Normal Range LVIDd 2D 3.6 [ 3.8 - 5.2 ] cm AV Peak Tylor 1.4 [ 100.0 - 170.0 ] cm/sec LVIDs 2D 2.3 [ 2.2 - 3.5 ] cm AV Peak PG 8.0 [ 2.0 - 9.0 ] mmHg LVPWd 2D 1.4 [ 0.6 - 0.9 ] cm LVOT Peak Tylor 1.0 [ 70.0 - 110.0 ] cm/sec IVSd 2D 1.4 [ 0.6 - 0.9 ] cm LVOT Peak PG 4.0 [ 2.0 - 6.0 ] mmHg AoR Diam 2D 2.4 [ 2.3 - 3.1 ] cm MV E Peak Tylor 0.5 [ 60.0 - 130.0 ] cm/sec EDV 2D 53.7 [ 46.0 - 106.0 ] ml MV A Peak Tylor 1.0 [ 100.0 - 120.0 ] cm/sec ESV 2D 18.5 [ 14.0 - 42.0 ] ml MV E/A 0.5 [ 0.8 - 1.5 ] ratio EF 2D 65.5 [ 54.0 - 74.0 ] percent MV Decel Time 211 [ 104 - 258 ] msec LA Dimen 2D 2.6 [ 2.7 - 3.8 ] cm Lat E` Tylor 0.1 [ 10.0 - 15.0 ] cm/sec Lateral E/E` 9.3 [ 1.0 - 2.0 ] ratio Med E` Tylor 0.0 cm/sec MV E/A 0.5 [ 0.8 - 1.5 ] ratio TR Peak Tylor 2.5 [ 100.0 - 280.0 ] cm/sec TR Peak PG 25.0 mmHg RVSP 28.0 [ 10.0 - 36.0 ] mmHg Findings: Left Ventricle: Normal left ventricular systolic function. Normal left ventricular cavity size. Moderate concentric left ventricular hypertrophy. Ejection fraction is visually estimated at 65 %. Tissue Doppler/Mitral Doppler indices are consistent with impaired relaxation (Stage I diastolic dysfunction). Right Ventricle: Normal right ventricular systolic function. Mild enlargement of right ventricle. Left Atrium: There is moderate enlargement of left atrium. Right Atrium: The right atrium is normal in size. Mitral Valve: Mild mitral leaflet calcification. Mild mitral annular calcification. Trace mitral regurgitation. Aortic Valve: No hemodynamically significant aortic stenosis by doppler. Aortic cusps appear mildly calcified. No aortic regurgitation. Tricuspid Valve: Normal appearance of the tricuspid valve. The estimated Peak RVSP is 28 mmHg. There is mild tricuspid regurgitation. Pericardium: Normal pericardium with no significant pericardial effusion. Aorta: Normal aortic root. IVC: Normal size and normal respiratory collapse consistent with normal right atrial pressure. Conclusions: Normal left ventricular systolic function. Normal left ventricular cavity size. Moderate concentric left ventricular hypertrophy. Ejection fraction is visually estimated at 65 %. Tissue Doppler/Mitral Doppler indices are consistent with impaired relaxation (Stage I diastolic dysfunction). No significant valvular stenosis or regurgitation seen. The estimated Peak RVSP is 28 mmHg. Normal size and normal respiratory collapse consistent with normal right atrial pressure. Electronically Signed By: Jame Ramos 2019-01-27 08:56:07 PDT
--- NOTE | 2019-01-27 08:58 | CONS ---
Assessment/Plan Assessment/Plan Hospital Course (Demo Recall) Chest pain/palpitations/SVT: With tele showing runs of SVT which appear to be atrial tachycardia, this may have been what she felt. EKGs and trops negative and echo with normal LV function. She is also relatively active and asymptomatic.Defer stress testing unless she has recurrent symptoms HTN DM UTI Mild dementia -ok for d/c home -continue atenolol 50mg BID -ASA, lipitor Consultation Date/Type/Reason Admit Date/Time Jan 25, 2019 at 16:18 Initial Consult Date 01/26/19 Type of Consult Cardiology Requesting Provider: SHAWNEE CALDERON MD Date/Time of Note DATE: 01/27/19 TIME: 08:56 24 HR Interval Summary Free Text/Dictation No complaints. No events. No SVT on tele. No chest pain. Trops negative. Exam/Review of Systems Vital Signs Vitals Vital Signs Date Temp Pulse Resp B/P (MAP) Pulse Ox O2 O2 Flow FiO2 Time Delivery Rate 01/27/19 97.8 58 20 115/58 97 Nasal 07:45 (77) Cannula 01/27/19 2.0 27 00:58 Intake and Output 01/26/19 01/26/19 01/27/19 1515:00 23:00 07:00 IntakeIntake Total 200 ml 1200 ml 700 ml BalanceBalance 200 ml 1200 ml 700 ml Exam Constitutional: alert, oriented Psych: no complaints, nl mood/affect Head: normocephalic, atraumatic Neck: No jvd Respiratory: clear to auscultation; No crackles/rales Cardiovascular: regular rate and rhythm; No edema Gastrointestinal: soft, non-tender; No distended Neurological: nl mental status, nl speech Labs Result Diagram: 01/[birth year]/1949 01/26/19 0949 Results 24hrs Laboratory Tests Test 01/26/19 09:49 01/26/19 12:07 01/26/19 17:02 01/26/19 21:21 White Blood Count 6.1 Red Blood Count 4.86 Hemoglobin 13.8 Hematocrit 43.0 Mean Corpuscular Volume 88.5 Mean Corpuscular 28.4 L Hemoglobin Mean Corpuscular 32.1 Hemoglobin Concent Red Cell Distribution 13.6 Width Platelet Count 239 Mean Platelet Volume 9.6 Immature Granulocytes % 0.300 Neutrophils % 68.4 Lymphocytes % 21.9 Monocytes % 7.6 Eosinophils % 1.3 Basophils % 0.5 Nucleated Red Blood 0.0 Cells % Immature Granulocytes # 0.020 Neutrophils # 4.1 Lymphocytes # 1.3 Monocytes # 0.5 Eosinophils # 0.1 Basophils # 0.0 Nucleated Red Blood 0.0 Cells # Sodium Level 140 Potassium Level 4.1 Chloride Level 102 Carbon Dioxide Level 29 Anion Gap 9 Blood Urea Nitrogen 22 H Creatinine 0.85 Est Glomerular Filtrat Rate mL/min Glucose Level 284 H Calcium Level 9.9 Total Bilirubin 0.7 Direct Bilirubin 0.00 Indirect Bilirubin 0.7 Aspartate Amino 23 Transf (AST/SGOT) Alanine 29 Aminotransferase (ALT/SG PT) Alkaline Phosphatase 116 Troponin I < 0.012 Total Protein 6.9 Albumin 4.4 Globulin 2.50 Albumin/Globulin Ratio 1.76 Bedside Glucose 142 131 177 Test 01/27/19 07:58 Bedside Glucose 165 Medications Medications Current Medications Ciprofloxacin/ Dextrose 200 ml @ 200 mls/hr BID WITH MEALS IVPB Last administered on 01/27/19 08:01; Admin Dose 200 MLS/HR; Start 01/26/19 at 08:00 Metformin HCl (Glucophage) 500 mg BID WITH MEALS PO Last administered on 01/27/19at 08:00; Admin Dose 500 MG; Start 01/26/19 at 08:00 Insulin Aspart (Novolog Insulin Pen) NOVOLOG *MODERATE* ALGORITHM WITH MEALS BEDTIME SC Last administered on 01/27/19at 08:16; Admin Dose 2 UNIT; Start 01/26/19 at 08:00 Pantoprazole (Protonix Tab) 40 mg DAILY@06 PO Last administered on 01/27/19at 06:04; Admin Dose 40 MG; Start 01/26/19 at 06:00 Ondansetron HCl (Zofran Inj) 4 mg Q4H PRN IV NAUSEA AND/OR VOMITING; Start 01/26/19 at 00:30 Aspirin (Aspirin) 81 mg DAILY PO Last administered on 01/27/19at 08:19; Admin Dose 81 MG; Start 01/26/19 at 09:00 Atenolol (Tenormin) 50 mg BID PO Last administered on 01/27/19at 08:21; Admin Dose 50 MG; Start 01/26/19 at 09:00 Atorvastatin Calcium (Lipitor) 40 mg QHS PO Last administered on 01/26/19 21:22; Admin Dose 40 MG; Start 01/26/19 at 21:00 Repaglinide (Prandin) 1 mg AC MEALS PO Last administered on 01/27/19 08:01; Admin Dose 1 MG; Start 01/26/19 at 07:00 Diagnostic Test (Pha) (Accu-Chek) 1 ea AC MEALS AND BEDTIME XX Last administ ered on 01/27/19 07:00; Admin Dose 1 EA; Start 01/26/19 at 07:00 Enalapril Maleate (Vasotec) 2.5 mg DAILY PO Last administered on 01/27/19 08:20; Admin Dose 2.5 MG; Start 01/26/19 at 09:00 JAME DURON Jan 27, 2019 08:58
[2019-01-27 11:22] VITALS: BP 130/67; PULSE 62; RESP 20
== END 2019-01-27 13:20 | disposition home or self-care (01) | DRG 309 ==
LOC: E/R 11:32 → 6WM 16:18 → CANRESERV 21:55
PROVIDERS: ADMIT Family Medicine; ATTEND Family Medicine
DX: I47.1 Supraventricular tachycardia (principal); N39.0 Urinary tract infection, site not specified; F03.90 Unspecified dementia, unspecified severity, without behavioral disturbance, psychotic disturbance, mood disturbance, and anxiety; I48.0 Paroxysmal atrial fibrillation; D63.8 Anemia in other chronic diseases classified elsewhere; R07.9 Chest pain, unspecified; I10 Essential (primary) hypertension; Z79.4 Long term (current) use of insulin; I25.10 Atherosclerotic heart disease of native coronary artery without angina pectoris; E78.5 Hyperlipidemia, unspecified; F41.9 Anxiety disorder, unspecified; M19.90 Unspecified osteoarthritis, unspecified site; I16.0 Hypertensive urgency; E11.65 Type 2 diabetes mellitus with hyperglycemia
CPT/HCPCS: 71045; 80053; 81001; 82962; 83735; 83880; 84484; 85025; 93005; 93306; J0744; J1815